=== PATIENT | male | born 1970 | race Caucasian/White ===

== ENCOUNTER 2017-04-01 16:30 | Emergency (ER) | payer BC ==
[2017-04-01 16:37] VITALS: BP 148/88
--- NOTE | 2017-04-01 16:57 | Emergency Department Report ---
ED Headache HPI - General Chief Complaint: Headache Stated Complaint: HEADACHE Time Seen by Provider: 04/01/17 16:39 Source: patient, RN notes reviewed Exam Limitations: no limitations - History of Present Illness Initial Comments: 47-year-old male denies past medical history. No history of tobacco negative drug use occasional alcohol use. He is states had a gradual onset of a nonexertional headache they said off and on for several days that he thinks is likely related to flu. Patient states that he had a little bit of viral symptoms then began to Sadie a occipital headache and hatband distribution headache was some nasal congestion clear rhinorrhea with some body aches. No fever no stiff neck no photophobia no rash no sudden onset of exertional headache. Here for evaluation of viral symptoms with nasal congestion with intermittent headache for several days. He denies any focal neural complaints no weakness numbness no stiff neck no gait disturbance and speech or visual complaints. Timing/Duration: waxing and waning, other (times several days) Quality: mild, moderate Head Injury Location: temporal, occipital, other (hat band) Associated Symptoms: nausea/vomiting, nasal congestion, nasal drainage, sinus infection. denies: facial pain, fever/chills, flushing, loss of consciousness, numbness in legs/feet, rash, seizures, stiff neck, vision changes, weakness Allergies/Adverse Reactions: Allergies No Known Allergies Allergy (Unverified 04/01/17 16:37) Home Medications: Ambulatory Orders Azithromycin [Zithromax Z-KENRICK] 250 mg PO DAILY #6 tablet 04/01/17 Fluticasone [Flonase] 1 spray NS QDAY #1 bottle 04/01/17 HYDROcodone/APAP 5-325 [Cunningham 5/325] 1 each PO Q6HR PRN #10 tablet 04/01/17 Ibuprofen [Motrin] 400 mg PO Q8H PRN #20 tablet 04/01/17 ED Review of Systems ROS: Stated complaint: HEADACHE Other details as noted in HPI Comment: All other systems reviewed and negative Constitutional: malaise. denies: chills, diaphoresis, fever Eyes: denies: eye pain, eye discharge, vision change ENT: congestion. denies: ear pain, throat pain, dental pain, hearing loss, epistaxis Respiratory: denies: shortness of breath, SOB with exertion, SOB at rest, stridor, wheezing Cardiovascular: denies: chest pain, palpitations, dyspnea on exertion, orthopnea , edema, syncope, paroxysmal nocturnal dyspnea Endocrine: denies: excessive sweating, flushing, intolerance to cold, intolerance to heat, increased hunger, increased thirst, increased urine, unexplained weight gain, unexplained weight loss Gastrointestinal: nausea. denies: abdominal pain, vomiting, diarrhea, constipation, hematemesis, melena Genitourinary: denies: urgency, dysuria Musculoskeletal: myalgia. denies: back pain, joint swelling, arthralgia Skin: denies: rash, lesions Neurological: headache. denies: weakness, numbness, paresthesias, confusion, abnormal gait, vertigo Hematological/Lymphatic: denies: easy bleeding, easy bruising ED Past Medical Hx - Past Medical History Previous Medical History?: No - Surgical History Past Surgical History?: No - Social History Smoking Status: Never Smoker Substance Use Type: None - Medications Home Medications: Home Medications Medication Instructions Recorded Confirmed Last Taken Type Azithromycin [Zithromax Z-KENRICK] 250 mg PO DAILY #6 tablet 04/01/17 Unknown Rx Fluticasone [Flonase] 1 spray NS QDAY #1 bottle 04/01/17 Unknown Rx HYDROcodone/APAP 5-325 [Cunningham 1 each PO Q6HR PRN #10 tablet 04/01/17 Unknown Rx 5/325] Ibuprofen [Motrin] 400 mg PO Q8H PRN #20 tablet 04/01/17 Unknown Rx ED Physical Exam - General Limitations: No Limitations General appearance: alert, in no apparent distress - Head Head exam: Present: atraumatic, normocephalic, normal inspection - Eye Eye exam: Present: normal appearance, PERRL, EOMI Pupils: Present: normal accommodation - ENT ENT exam: Present: mucous membranes moist, TM's normal bilaterally, other ( facial tenderness with nasal congestion) - Neck Neck exam: Present: normal inspection. Absent: tenderness, meningismus, lymphadenopathy, thyromegaly - Respiratory Respiratory exam: Present: normal lung sounds bilaterally. Absent: respiratory distress, wheezes, rales, rhonchi, stridor, chest wall tenderness, accessory muscle use, decreased breath sounds, prolonged expiratory - Cardiovascular Cardiovascular Exam: Present: regular rate, normal rhythm. Absent: systolic murmur, diastolic murmur - GI/Abdominal GI/Abdominal exam: Present: soft. Absent: distended, tenderness, guarding, rebound, rigid, mass - Extremities Exam Extremities exam: Present: normal inspection, normal capillary refill. Absent: joint swelling - Neurological Exam Neurological exam: Present: alert, oriented X3, CN II-XII intact, normal gait. Absent: motor sensory deficit ED Course Vital Signs 04/01/17 16:34 Temperature 98.6 F Pulse Rate 86 Respiratory 18 Rate Blood Pressure 148/88 O2 Sat by Pulse 100 Oximetry - Reevaluation(s) Reevaluation #1: 04/01/17 17:00 Discussed with patient the consideration of CT head given no history of headaches. Patient is refusing that at this time says his insurance won't pay for it. I did discuss with patient that we would likely recommend this and that we cannot further evaluate for possible more serious problems he is aware of risk and verbalized understanding of refusal including missed brain and intracranial pathology is refusing this at this time if persistent symptoms he says he see his regular doctor for an MRI. ED Medical Decision Making - Medical Decision Making Patient is to have some symptoms suggestive of viral syndrome. However he is 2- 3 w/ illness, no photobia, no stiff neck, no fever, does have facial tenderness and nasal congestion w. evidence of tension floyd. will start pt on meds, as previously noted patient did refuse head CT risk including missed brain or intracranial pathology he does verbalize understanding including the risk of disability and will see his regular doctor if he is having persistent headaches. Nonfocal neuro exam afebrile supple neck stable for outpatient follow-up abdomen is soft nontender with no nausea vomiting noted in ED and he is tolerating by mouth. Critical care attestation.: If time is entered above; I have spent that time in minutes in the direct care of this critically ill patient, excluding procedure time. ED Disposition Clinical Impression: Headache, Sinusitis Disposition: - TO HOME OR SELFCARE Is pt being admited?: No Condition: Stable Instructions: Acute Headache (ED), Sinusitis (ED) Additional Instructions: Return immediately if new or alarming symptoms see your doctor in 2 days Prescriptions: Azithromycin [Zithromax Z-KENRICK] 250 mg PO DAILY #6 tablet Fluticasone [Flonase] 1 spray NS QDAY #1 bottle HYDROcodone/APAP 5-325 [Cunningham 5/325] 1 each PO Q6HR PRN #10 tablet PRN Reason: Pain Ibuprofen [Motrin] 400 mg PO Q8H PRN #20 tablet PRN Reason: Pain
== END 2017-04-01 17:22 | disposition home or self-care (01) ==
LOC: ED 16:30
DX: J32.9 Chronic sinusitis, unspecified (principal); R51 Headache
CPT/HCPCS: 99282